=== PATIENT | female | born 1985 | race American Indian/Alaskan Native ===

== ENCOUNTER 2019-09-23 16:15 | Emergency (ER) | payer MEDICAID ==
[2019-09-23 16:39] VITALS: BP 116/53; PULSE 101
[2019-09-23] MEDS ORDERED: Dexamethasone 4 MG/ML SDV IM ONE (16:47)
--- NOTE | 2019-09-23 16:53 | EDM.PDOC ---
ED HPI GENERAL MEDICAL PROBLEM - General Chief Complaint: General Stated Complaint: facial burning Time Seen by Provider: 09/23/19 16:20 Source of Information: Reports: Patient History Limitations: Reports: No Limitations - History of Present Illness INITIAL COMMENTS - FREE TEXT/NARRATIVE: Patient to the emergency department where she advises that she was driving back home from [place] when she felt something pop in her ear, she also advised that she started breaking out in a red rash on her face that was itching. The patient denies any symptoms anywhere else. The patient is currently on antibiotics for what she describes as "MRSA in her ear nose and mouth". She advises that she has had 3 separate doses of 3 separate antibiotics over the last month. She denies any throat swelling denies any trouble swallowing or breathing. Denies any shortness of breath no wheezing. Denies any other symptoms Face/Facial Pain Score (Numeric/FACES): 8 - Related Data Allergies Allergy/AdvReac Type Severity Reaction Status Date / Time codeine Allergy Intermediate Itching Verified 09/23/19 16:41 acetaminophen Allergy Itching Verified 09/23/19 16:41 [From Tylenol-Codeine #3] hydrocodone Allergy Itching Verified 09/23/19 16:41 Home Meds: Home Meds Amoxicillin/Potassium Clav [Augmentin 875-125 Tablet] 875 mg PO BID 09/23/19 [History] No122/Iron/Folic Acid [ Multi Tablet] 1 tab PO DAILY 09/23/19 [History] Past Medical History - Past Health History Medical/Surgical History: Denies Medical/Surgical History HEENT History: Reports: Other (See Below) Other HEENT History: hearing loss right side Cardiovascular History: Reports: None Respiratory History: Reports: Intubation, Previous Gastrointestinal History: Reports: None Genitourinary History: Reports: None 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: , 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 Musculoskeletal History: Reports: Other (See Below) Neurological History: Reports: None Psychiatric History: Reports: Anxiety, Depression, Panic Attack, PTSD Endocrine/Metabolic History: Reports: None Insulin Pump Model and Lard Renderer: None Hematologic History: Reports: None Immunologic History: Reports: None Oncologic (Cancer) History: Reports: Ovarian Other Oncologic History: ovarian cancer cells removed from uterus Dermatologic History: Reports: None - Infectious Disease History Infectious Disease History: Reports: MRSA - Past Surgical History Head Surgeries/Procedures: Reports: None Female Surgical History: Reports: D&C Other Musculoskeletal Surgeries/Procedures:: Scoliosis Social & Family History - Family History Family Medical History: Noncontributory - Tobacco Use Smoking Status *Q: Current Every Day Smoker Years of Tobacco use: 20 Packs/Tins Daily: 0.5 - Caffeine Use Caffeine Use: Reports: None - Recreational Drug Use Recreational Drug Use: No ED ROS GENERAL - Review of Systems Review Of Systems: See Below Constitutional: Reports: No Symptoms. Denies: Fever, Chills HEENT: Reports: Ear Pain. Denies: Ear Discharge, Hearing Loss, Nose Pain, Rhinitis, Sinus Problem, Throat Pain, Throat Swelling Respiratory: Reports: No Symptoms. Denies: Shortness of Breath, Wheezing, Cough Cardiovascular: Reports: No Symptoms. Denies: Chest Pain GI/Abdominal: Reports: No Symptoms. Denies: Abdominal Pain, Nausea, Vomiting : Reports: No Symptoms Musculoskeletal: Reports: No Symptoms. Denies: Neck Pain, Back Pain Skin: Reports: Rash. 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, the left ears normal), Normal Canal, Hearing Grossly Normal, Normal TMs Nose: Normal Inspection, Normal Mucosa Throat/Mouth: Normal Inspection, Normal Oropharynx, Normal Voice, No Airway Compromise Head: Atraumatic, Normocephalic Neck: Normal Inspection, Supple, Non-Tender, Full Range of Motion Respiratory/Chest: No Respiratory Distress, Lungs Clear, Normal Breath Sounds, Chest Non-Tender Cardiovascular: Normal Peripheral Pulses, Regular Rate, Rhythm Peripheral Pulses: 2+: Radial (L) Back Exam: Normal Inspection Extremities: Normal Inspection, Normal Range of Motion, Normal Capillary Refill Neurological: Alert, Oriented, Normal Cognition, Normal Gait, No Motor/Sensory Deficits Psychiatric: Normal Affect, Normal Mood Skin Exam: Warm, Dry, Intact, Normal Color, Rash (Reddened type area around the left upper forehead and cheek, no welps) Course - Vital Signs Text/Narrative:: The patient was evaluated in the emergency department, it is unclear exactly the etiology of this reddened itchy rash that the patient is describing. The popping in her ear does not appear to have any negative effects on physical exam. The patient was given Decadron 10 mg IM she is advised to continue the current medications and follow-up with your nose and throat doctor she is advised to return to the emergency department as needed Last Recorded V/S: Last Vital Signs Temp 36.7 C 09/23/19 16:38 Pulse 101 H 09/23/19 16:38 Resp 18 09/23/19 16:38 BP 116/53 L 09/23/19 16:38 Pulse Ox 96 09/23/19 16:38 - Orders/Labs/Meds Orders: Active Orders 24 hr Category Date Time Status dexAMETHasone [Dexamethasone] Med 09/23/19 16:47 Once 10 mg IM ONETIME ONE Departure - Departure Time of Disposition: 16:53 Disposition: Home, Self-Care 01 Condition: Good Clinical Impression: Dermatitis - Discharge Information Instructions: Contact Dermatitis, [id number] Additional Instructions: Continue your current medications Benadryl 25 mg every 8 hours for 24 hours Follow-up with your ear, nose, and throat doctor this week, call Wednesday for an appointment time Return to the emergency department as needed Sepsis Event Note (ED) - Evaluation Sepsis Screening Result: No Definite Risk - Focused Exam Vital Signs: Vital Signs Temp Pulse Resp BP Pulse Ox 09/23/19 16:38 36.7 C 101 H 18 116/53 L 96 - Problem List & Annotations (1) Dermatitis SNOMED Code(s): 908142696 Code(s): L30.9 - DERMATITIS, UNSPECIFIED Status: Acute Priority: Medium Current Visit: Yes - Problem List Review Problem List Initiated/Reviewed/Updated: Yes - My Orders Last 24 Hours: My Active Orders 09/23/19 16:47 dexAMETHasone [Dexamethasone] 10 mg IM ONETIME ONE - Assessment/Plan Last 24 Hours: My Active Orders 09/23/19 16:47 dexAMETHasone [Dexamethasone] 10 mg IM ONETIME ONE Plan: The patient's past medical history, past surgical history, past social history and past family medical history was reviewed see the nursing notes for details
[2019-09-23] MEDS: predniSONE 20 MG Tab PO ONE (17:07)
[2019-09-24] MEDS ORDERED: predniSONE 20 MG Tab PO ONE (16:57)
== END 2019-09-23 17:13 | disposition home or self-care (01) ==
LOC: CC.ED 16:15
DX: L30.9 Dermatitis, unspecified (principal); F17.210 Nicotine dependence, cigarettes, uncomplicated; Z88.5 Allergy status to narcotic agent; Z88.6 Allergy status to analgesic agent
CPT/HCPCS: 96372; 99282; J7512